=== PATIENT | male | born 1990 | race Caucasian/White ===

== ENCOUNTER 2020-12-08 20:23 | Emergency (ER) | payer OTHER ==
[2020-12-08 21:03] LABS: BASOPHIL 0.8 % (0-2); EOSINOPHIL 3.6 % (0-5); HCT 42.2 % (42.0-52.0); HGB 13.4 g/dl (13.2-18.0); LYMPHOCYTE 8.1 % (15-48); MCH 28.9 pg (25.0-31.0); MCHC 31.8 g/dL (32.0-36.0); MCV 90.9 fL (78.0-100.0); MONOCYTE 9.6 % (0-12); MPV 11.4 fL (6.0-9.5); NEUTROPHIL 77.4 % (41-80); NRBC 0; PLT 143 K/uL (150-400); RBC 4.64 M/uL (4.70-6.00); RDW 13.7 % (11.5-14.0); WBC 9.3 K/uL (4.0-10.5)
[2020-12-08 21:29] LABS: LACTIC ACID 1.8 mmol/L (0.4-1.9); PRO-BNP 849 pg/mL (<125)
[2020-12-08 21:31] LABS: ALBUMIN 3.6 g/dL (3.4-5.0); ALKALINE PHOSHATASE 108 U/L (46-116); ALT 200 U/L (16-63); AST 69 U/L (15-37); BILIRUBIN - TOTAL 0.5 mg/dL (0.2-1.0); BUN 15 mg/dL (7-18); BUN/CREAT RATIO (CALC) 15.2 RATIO; C-REACTIVE PROTEIN <0.20 mg/dL (<=0.90); CHLORIDE 102 mmol/L (98-107); CO2 (BICARBONATE) 28 mmol/L (21-32); CREATININE 0.99 mg/dL (0.67-1.17); GLOBULIN (CALCULATION) 2.7 g/dL; GLUCOSE 97 mg/dL (74-106); POTASSIUM 4.1 mmol/L (3.5-5.1); TOTAL PROTEIN 6.3 g/dL (6.4-8.2)
[2020-12-08 21:50] LABS: INR 1.73 (0.9-1.2); PROTHROMBIN TIME 19.5 SECONDS (11.8-13.4)
== END 2020-12-09 00:08 | disposition home or self-care (01) ==
LOC: FER 20:23
PROVIDERS: Emergency Medicine
DX: U07.1 COVID-19 (principal); R07.89 Other chest pain; Z95.4 Presence of other heart-valve replacement; Z72.0 Tobacco use; Z79.01 Long term (current) use of anticoagulants; Z86.79 Personal history of other diseases of the circulatory system; Z79.899 Other long term (current) drug therapy; Z23 Encounter for immunization
CPT/HCPCS: 36415; 71045; 71275; 80053; 83605; 83880; 84443; 84484; 85025; 85379; 85610; 86140; 87040; 93005; M0243; Q0244; Q9967; U0002

== ENCOUNTER 2021-01-25 11:22 | Emergency (ER) | payer OTHER ==
[~2021-01-25] VITALS: Ht 188 cm; Wt 81.6 kg
[2021-01-25 11:58] LABS: BASOPHIL 0.8 % (0-2); EOSINOPHIL 8.2 % (0-5); HCT 41.6 % (42.0-52.0); HGB 13.2 g/dl (13.2-18.0); LYMPHOCYTE 30.3 % (15-48); MCH 28.5 pg (25.0-31.0); MCHC 31.7 g/dL (32.0-36.0); MCV 89.8 fL (78.0-100.0); MPV 10.2 fL (6.0-9.5); NEUTROPHIL 51.1 % (41-80); NRBC 0; PLT 216 K/uL (150-400); RBC 4.63 M/uL (4.70-6.00); RDW 14.6 % (11.5-14.0); WBC 6.2 K/uL (4.0-10.5)
[2021-01-25 12:03] LABS: INR 4.4 (0.9-1.2); PROTHROMBIN TIME 40.8 SECONDS (11.8-13.4); PTT 38.7 SECONDS (24.4-34.7)
[2021-01-25 13:01] LABS: BUN/CREAT RATIO (CALC) 12.6 RATIO; CREATININE 0.95 mg/dL (0.67-1.17); POTASSIUM 4.1 mmol/L (3.5-5.1)
== END 2021-01-25 13:08 | disposition home or self-care (01) ==
LOC: FER 11:22
PROVIDERS: Emergency Medicine Emergency Medical Services
DX: R79.1 Abnormal coagulation profile (principal); I10 Essential (primary) hypertension; Z79.899 Other long term (current) drug therapy
CPT/HCPCS: 36415; 80048; 85025; 85610; 85730; 99284